=== PATIENT | male | born 1950 | race Two or more races ===

== ENCOUNTER 2019-12-15 08:13 | Day surgery (SDC) | payer MEDICAID ==
[~2019-12-15] VITALS: Ht 162.6 cm; Wt 83.0 kg
[2019-12-15 08:55] LABS: BASOPHILS % 0.6 % (0.0-2.0); EOSINOPHILS % 2.7 % (0.0-5.0); HEMOGLOBIN. 13.8 g/dL (14.0-18.0); MEAN CORPUSCULAR HEMOGLOBIN 28.6 pg (28.0-32.0); MEAN PLATELET VOLUME 9.7 fl (7.4-10.4); MONOCYTES % 7.3 % (2.0-8.0); NEUTROPHILS % 63.4 % (40.0-76.0); PLATELET 67 x1000/uL (130-400); RED BLOOD CELL COUNT 4.82 mill/uL (4.7-6.1); RED CELL DISTRIBUTION WIDTH 14.1 % (11.6-14.6)
[2019-12-15 09:05] LABS: CHLORIDE 108 mEq/L (98-107)
[2019-12-15] MEDS ORDERED: SODIUM CHLORIDE 0.9% 1,000 ML IV SCH (09:20)
[2019-12-15] MEDS ORDERED: LISI10TA5 PO (10:13)
[2019-12-15] MEDS ORDERED: TERA2CAP4 PO (10:13)
[2019-12-15] MEDS ORDERED: CHOL200077 PO (10:13)
[2019-12-15] MEDS ORDERED: METF-414 PO (10:13)
[2019-12-15] MEDS ORDERED: FLUO20CA39 PO (10:13)
[2019-12-15] MEDS ORDERED: PRAV20TA57 PO (10:13)
[2019-12-15] MEDS ORDERED: SIME125C PO (10:13)
[2019-12-15] MEDS ORDERED: MIDAZOLAM HCL 2 MG/2 ML VIAL ONE (11:33)
[2019-12-15] MEDS ORDERED: LIDOCAINE HCL/PF 1% 10 MG/ML 5ML VIAL ONE (11:33)
[2019-12-15] MEDS ORDERED: FENTANYL CITRATE/PF 50MCG/ML 2ML VIAL ONE (11:33)
[2019-12-15] MEDS ORDERED: PROPOFOL 200MG/20ML VIAL IV ONE (11:33)
[2019-12-15] MEDS ORDERED: TOBRAMYCIN SULFATE 80MG/2ML 30ML ONE (11:46)
[2019-12-15] MEDS ORDERED: METHYLPREDNISOLONE SOD SUCC 40 MG/ML VIAL ONE (11:47)
[2019-12-15] MEDS ORDERED: LIDOCAINE HCL/PF 2% 20 MG/ML 10ML VIAL ONE (15:55)
[2019-12-15] MEDS ORDERED: BALANCED SALT IRRIG SOLN 15ML ONE (15:55)
[2019-12-15] MEDS ORDERED: CIPROFLOXACIN 0.3% OPHTH SOLN 2.5ML ONE (15:55)
[2019-12-15] MEDS ORDERED: BUPIVACAINE HCL/PF 0.75% (7.5MG/ML) 10ML ONE (15:55)
[2019-12-15] MEDS ORDERED: PREDNISOLONE ACETATE 1% OPHTH DROPS 5ML ONE (15:55)
[2019-12-15] MEDS ORDERED: TETRACAINE 0.5% OPHTH DROPS 4ML ONE (15:55)
[2019-12-15] MEDS ORDERED: LIDOCAINE HCL 2%/EPINEPHRINE 1:100,000 20 ML VIAL INFIL ONE (15:55)
== END 2019-12-15 13:50 | disposition home or self-care (01) ==
LOC: OR 08:13
PROVIDERS: ATTEND Ophthalmology
DX: H11.002 Unspecified pterygium of left eye (principal); K21.9 Gastro-esophageal reflux disease without esophagitis; I10 Essential (primary) hypertension; E78.00 Pure hypercholesterolemia, unspecified; E11.9 Type 2 diabetes mellitus without complications; M17.10 Unilateral primary osteoarthritis, unspecified knee; D69.6 Thrombocytopenia, unspecified; F32.9 Major depressive disorder, single episode, unspecified; N40.0 Benign prostatic hyperplasia without lower urinary tract symptoms; Z79.84 Long term (current) use of oral hypoglycemic drugs; Z79.899 Other long term (current) drug therapy; Z87.891 Personal history of nicotine dependence; Z98.890 Other specified postprocedural states
CPT/HCPCS: 36415; 65420; 80048; 85025; J2250; J2704; J3010; J3490; J2920; J3260